=== PATIENT | female | born 1985 | race Two or more races ===

== ENCOUNTER 2017-11-23 12:16 | Emergency (ER) | payer OTHER ==
[~2017-11-23] VITALS: Ht 165.1 cm; Wt 78.6 kg
[2017-11-23 13:17] LABS: BASOPHIL % 0.4 % (0-2); PLATELET COUNT 194 x10^3mcL (130-400); RED CELL DISTRIBUTION WIDTH 13.1 % (11.5-14.5)
[2017-11-23 13:36] LABS: CARBON DIOXIDE 26.4 mmol/L (21-32); CHLORIDE SERUM 109 mmol/L (98-107); CREATININE SERUM 0.6 mg/dL (0.6-1.0); GFR1 > 60 mL/min; GLUCOSE SERUM 101 mg/dL (74-106); POTASSIUM SERUM 3.5 mmol/L (3.5-5.1); SODIUM SERUM 145 mmol/L (136-145)
[2017-11-23 14:50] VITALS: BP 119/76
== END 2017-11-23 14:50 | disposition home or self-care (01) ==
LOC: ED 12:16
PROVIDERS: Emergency Medicine Emergency Medical Services
DX: R42 Dizziness and giddiness (principal); R07.89 Other chest pain; R06.02 Shortness of breath
CPT/HCPCS: 36415

== ENCOUNTER 2018-03-14 21:48 | Emergency (ER) | payer OTHER ==
[2018-03-14 21:56] VITALS: Ht 165.1 cm
[2018-03-14 22:20] LABS: BASOPHIL % 0.5 % (0-2); PLATELET COUNT 199 x10^3mcL (130-400); RED CELL DISTRIBUTION WIDTH 12.9 % (11.5-14.5)
[2018-03-14 22:30] LABS: CALCIUM 8.5 mg/dL (8.5-10.1); CARBON DIOXIDE 26.6 mmol/L (21-32); CHLORIDE SERUM 106 mmol/L (98-107); CREATININE SERUM 0.6 mg/dL (0.6-1.0); GFR1 > 60 mL/min; GLUCOSE SERUM 95 mg/dL (74-106); POTASSIUM SERUM 3.4 mmol/L (3.5-5.1); SODIUM SERUM 141 mmol/L (136-145)
[2018-03-14 22:47] LABS: MAGNESIUM 2.3 mg/dL (1.8-2.4)
[2018-03-14 22:54] LABS: microscopic required? NO
[2018-03-14 22:55] LABS: CK-MB < 0.5 ng/mL (0-3.6); CREATINE KINASE 89 U/L (26-192)
[2018-03-14 23:16] LABS: UA SPECIFIC GRAVITY 1.015 (1.005-1.035); urine erythrocyte NEGATIVE (NEGATIVE)
[2018-03-15 00:53] VITALS: BP 102/70
== END 2018-03-15 00:53 | disposition home or self-care (01) ==
LOC: ED 21:48
PROVIDERS: Emergency Medicine
DX: R51 Headache (principal); R42 Dizziness and giddiness; R11.2 Nausea with vomiting, unspecified
CPT/HCPCS: 83880; J2270; J2405; J7030; J8597; Q0092

== ENCOUNTER 2019-02-18 12:57 | Emergency (ER) | payer OTHER ==
[~2019-02-18] VITALS: Ht 165.1 cm; Wt 78.9 kg
[2019-02-18 12:59] VITALS: Ht 165.1 cm; Wt 78.9 kg
[2019-02-18 15:43] VITALS: BP 116/77
== END 2019-02-18 15:43 | disposition home or self-care (01) ==
LOC: ED 12:57
DX: G43.909 Migraine, unspecified, not intractable, without status migrainosus (principal); Z90.49 Acquired absence of other specified parts of digestive tract; Z86.19 Personal history of other infectious and parasitic diseases
CPT/HCPCS: J3030; Q0162

== ENCOUNTER 2020-05-01 13:53 | Emergency (ER) | payer OTHER ==
[~2020-05-01] VITALS: Ht 165.1 cm; Wt 78.0 kg
[2020-05-01 14:34] VITALS: Ht 165.1 cm; Wt 78.0 kg
[2020-05-01 17:36] LABS: BASOPHIL % 0.5 % (0-2); PLATELET COUNT 206 x10^3mcL (130-400); RED CELL DISTRIBUTION WIDTH 12.7 % (11.5-14.5)
[2020-05-01 17:44] LABS: CALCIUM 8.8 mg/dL (8.5-10.1); CHLORIDE SERUM 106 mmol/L (98-107); CREATININE SERUM 0.5 mg/dL (0.6-1.0); GFR1 > 60 mL/min; GLUCOSE SERUM 84 mg/dL (74-106); POTASSIUM SERUM 3.7 mmol/L (3.5-5.1); SODIUM SERUM 140 mmol/L (136-145)
[2020-05-01 17:58] LABS: ALBUMIN 4.1 g/dL (3.4-5.0); ALKALINE PHOSPHATASE 89 U/L (46-116); ALT/SGPT 22 U/L (14-59); AST/SGOT 21 U/L (15-37); BILIRUBIN TOTAL 0.9 mg/dL (0.20-1.00); TOTAL PROTEIN, SERUM 7.9 g/dL (6.4-8.2)
[2020-05-01 18:31] VITALS: BP 119/74
== END 2020-05-01 18:59 | disposition home or self-care (01) ==
LOC: ED 13:53
PROVIDERS: Emergency Medicine
DX: N83.209 Unspecified ovarian cyst, unspecified side (principal); D25.9 Leiomyoma of uterus, unspecified; G43.909 Migraine, unspecified, not intractable, without status migrainosus; Z98.890 Other specified postprocedural states; Z90.49 Acquired absence of other specified parts of digestive tract
CPT/HCPCS: J1885